=== PATIENT | male | born 2000 | race Caucasian/White ===

== ENCOUNTER 2022-06-05 16:43 | Outpatient (CLI) | payer OTHER, SELFPAY ==
[2022-06-05 17:58] LABS: Albumin* 4.7 g/dL (3.3-5.0); Chloride* 103 mmol/L (96-114); Potassium* 4.4 mmol/L (3.6-5.1); Sodium* 138 mmol/L (135-149)
[2022-06-05 18:01] LABS: Alanine Aminotransferase* 40 U/L (4-50); Alkaline Phosphatase* 75 U/L (40-150); Aspartate Amino Transferase* 41 U/L (12-35); Bilirubin Total* 0.9 mg/dL (0.1-1.5); Blood Urea Nitrogen* 16 mg/dL (5-24); Calcium* 9.2 mg/dL (8.4-10.6); Carbon Dioxide* 25 mmol/L (20-32); Creatinine* 0.7 mg/dL (0.5-1.5); Estimated Glomerular Filt Rate 135 ml/min; Glucose* 104 mg/dL (60-115); Lipase* 37 U/L (23-300); Total Protein* 8.2 g/dL (6.0-8.3)
== END 2022-06-05 16:44 | disposition home or self-care (01) ==
PROVIDERS: Visit Provider Student in an Organized Health Care Education/Training Program
DX: R10.9 Unspecified abdominal pain (principal)
CPT/HCPCS: 80053; 83690

== ENCOUNTER 2022-06-06 01:34 | Emergency (ER) | payer OTHER, SELFPAY ==
--- NOTE | 2022-06-06 01:39 | ED_ITS ---
HPI - General Adult General Time Seen by Provider: 01:39 Date Seen: 06/06/22 Chief complaint: Nausea/Vomiting Stated complaint: stomach hurts and vomitting. Time Seen by Provider: 06/06/22 01:40 Source: patient Mode of arrival: ambulatory Limitations: no limitations History of Present Illness HPI narrative: 21-year-old who presents today with 1 day of abdominal pain, nausea, vomiting. Review of chart shows the patient was seen for this at Urgent Care, labs were done with normal white blood cell count, normal hepatic panel, normal lipase. Was given Zofran at Urgent Care in felt better, however symptoms returned tonight and so came in the emergency department. Pain is in the middle the stomach, nonradiating. No diarrhea. No urinary symptoms. No fevers. No cough or runny nose. Related Data Home Medications Medication Instructions Recorded Confirmed estradiol 1 mg-progesterone 100 mg cap PO 06/05/22 06/05/22 capsule progesterone micronized 100 mg 100 mg PO QAM 06/05/22 06/05/22 capsule spironolactone 50 mg tablet 50 mg PO QAM 06/05/22 06/05/22 Allergies Allergy/AdvReac Type Severity Reaction Status Date / Time No Known Drug Allergies Allergy Verified 06/06/22 02:31 [facility] PFS Social History Smoking Status: Never smoker Do you use any of these nicotine containing products: None Second hand tobacco smoke exposure: No How often do you have a drink containing alcohol: never AUDIT-C Alcohol total score: 0 Non-prescribed substance use: denies use service: No Exam Narrative: Exam Narrative: General: Well-developed and well-nourished, no acute distress Head: Atraumatic and normocephalic Eyes: Pupils are equal reactive, extraocular motions intact, conjunctiva clear ENT: External nose and ears are normal, posterior pharynx without erythema or exudate Neck: No midline cervical tenderness, full spontaneous range of motion the neck, trachea midline, no adenopathy Heart: Regular rate and rhythm no murmurs or thrills Lungs: Clear to auscultation bilaterally without wheezes or crackles Abdomen: Hyperactive bowel sounds, suprapubic and right lower quadrant tenderness Musculoskeletal: No tenderness, deformity, or edema Neurologic: Awake, alert, and oriented x3, no gross focal neurologic deficits, cranial nerves intact as tested Psych: Mood and affect are appropriate Skin: No rashes Const: Vital Signs, click to edit/add: Vital Signs - 24 hr 06/06/22 01:48 06/06/22 02:49 Temperature 98.1 F Pulse Rate [Pulse Oximeter] 106 H 91 Respiratory Rate 16 16 Blood Pressure [Le ft Upper Arm] 138/85 121/72 Pulse Oximetry 99 98 Oxygen Delivery Me thod Room Air Room Air Course Course Hospital Course: Patient seen examined, external records reviewed. Patient presents with nausea, vomiting, and abdominal pain. Initially says the pain is in the middle of the abdomen but on exam tenderness is suprapubic and right lower quadrant. Patient had normal white blood cell count with normal back panel and normal lipase at Urgent Care earlier although did have a left shift. Given mid abdominal pain now localized into the right lower quadrant, concern for appendicitis although enteritis is more likely clinically. Labs and CT scan are ordered. Reevaluation(s) Reevaluation #1: Labs are reassuring, CT scan is negative. Patient is stable for discharge. Time: 03:13 Vital Signs Vital signs: Initial Vital Signs Temperature 98.1 F 06/06/22 01:48 Temperature Source Temporal Artery Scan 06/06/22 01:48 Pulse Rate 106 H 06/06/22 01:48 Respiratory Rate 16 06/06/22 01:48 Blood Pressure 138/85 06/06/22 01:48 Blood Pressure Mean 102 06/06/22 01:48 Pulse Oximetry 99 06/06/22 01:48 Oxygen Delivery Method 06/06/22 01:48 Vital Signs Temperature 98.1 F 06/06/22 01:48 Pulse Rate 106 H 06/06/22 01:48 Respiratory Rate 16 06/06/22 01:48 Blood Pressure 138/85 06/06/22 01:48 Pulse Oximetry 99 06/06/22 01:48 Oxygen Delivery Method 06/06/22 01:48 Temperature 98.1 F 06/06/22 01:48 Pulse Rate 91 06/06/22 02:49 Respiratory Rate 16 06/06/22 02:49 Blood Pressure 121/72 06/06/22 02:49 Pulse Oximetry 98 06/06/22 02:49 Oxygen Delivery Method 06/06/22 02:49 Medical Decision Making Lab Data Labs: Lab Results 06/06/22 Range/Units 02:04 WBC 8.49 (4.50-11.00) K/uL RBC 4.75 (4.30-5.90) m/uL Hgb 14.1 (13.5-17.5) gm/dL Hct 43.2 (37.0-53.0) % MCV 91 (80-100) fL MCH 30 (26-34) pg MCHC 33 (32-36) gm/dL RDW Coeff of Bong 12.7 (11.5-15.5) % Plt Count 204 (140-440) K/uL Neut % (Auto) 82.4 H (42.0-72.0) % Lymph % (Auto) 6.6 L (20-44) % Sac % (Auto) 10.0 (0.0-11.0) % Eos % (Auto) 0.7 (0.0-7.0) % Baso % (Auto) 0.1 (0.0-3.0) % Neut # (Auto) 7.00 (1.7-7.0) K/uL Lymph # (Auto) 0.60 L (0.90-2.90) K/uL Sac # (Auto) 0.80 (0.00-0.90) K/UL Eos # (Auto) 0.06 (0.00-0.50) K/uL Baso # (Auto) 0.01 (0.00-0.30) K/uL Discharge Plan Discharge Clinical Impression: Nausea and vomiting Patient Disposition: Home, Self-Care Condition: Stable Instructions: Acute Nausea and Vomiting (ED) Additional Instructions: Liquid diet for 24 hours. Take Zofran as needed for nausea vomiting. Activity Level: No Restrictions Discharge Diet: Full Liquid Prescriptions: No Action spironolactone 50 mg tablet 50 mg PO QAM estradiol-progesterone 1-100 mg capsule PO progesterone micronized 100 mg capsule 100 mg PO QAM Rx Instructions: off 7 days; repeat cycle Follow Up/Referrals: Provider,Not a Local [Primary Care Provider] - Stand Alone Forms: [employer] Info Instructions
[2022-06-06 01:48] VITALS: BP 138/85; PULSE 106; RESP 16; TEMP 36.7; O2SAT 99; BMI 28.5
--- NOTE | 2022-06-06 01:59 | CRLHL7_ITS ---
For Patients: As a result of the Century Cures Act, medical imaging exams and procedure reports are released immediately into your electronic medical record. You may view this report before your referring provider. If you have questions, please contact your health care provider. INDICATION: Right lower quadrant tenderness, vomiting. TECHNIQUE: CT abdomen and pelvis acquired with 99 cc Isovue 370 IV contrast. COMPARISON: None. FINDINGS: Lower chest: Unremarkable. Liver: Normal in size and attenuation. Right hepatic cyst. Subcentimeter hypodense foci are too small to accurately characterize but likely also cysts or hemangiomas. Gallbladder and bile ducts: Unremarkable. No stones or inflammation. No biliary ductal dilatation. Spleen: Unremarkable. Normal in size. No masses. Adrenal glands: Unremarkable. No nodules. Pancreas: Unremarkable. No mass or inflammation. Kidneys: Unremarkable. No suspicious masses, stones, or hydronephrosis. GI tract: Unremarkable. Normal in caliber. No sign of mass or inflammation. Normal appendix. Lymph nodes: No lymphadenopathy. Vasculature: Unremarkable. Omentum/Peritoneum/Abdominal Wall: Unremarkable. No sign of mass or infiltration. No free air or significant free fluid. Pelvis: Unremarkable. Bones: Unremarkable for age. IMPRESSION: No acute abdominal or pelvic abnormalities. Please note that all CT scans at this facility use dose modulation, iterative reconstruction, and/or weight-based dosing when appropriate to reduce radiation dose to as low as reasonably achievable. Dictated by Stuart Palacio MD @ 06/06/2022 3:12:44 AM (Electronically Signed)
[2022-06-06] MEDS: ONDANSETRON 2 MG/ML inj 4 MG IVP (02:01)
[2022-06-06 02:10] LABS: Basophils Absolute Auto 0.01 K/uL (0.00-0.30); Basophils Percent Auto 0.1 % (0.0-3.0); Eosinophils Absolute Auto 0.06 K/uL (0.00-0.50); Eosinophils Percent Auto 0.7 % (0.0-7.0); Hematocrit 43.2 % (37.0-53.0); Hemoglobin* 14.1 gm/dL (13.5-17.5); Immature Granulocytes Abs Auto 0.02 K/uL (0.00-0.30); Immature Granulocytes Pct Auto 0.2 %; Lymphocytes Percent Auto 6.6 % (20-44); Mean Corpuscular HGB Conc 33 gm/dL (32-36); Mean Corpuscular Hemoglobin 30 pg (26-34); Mean Corpuscular Volume 91 fL (80-100); Neutrophils Percent Auto 82.4 % (42.0-72.0); Platelet Count* 204 K/uL (140-440); RDW Coefficient of Variation % 12.7 % (11.5-15.5); Red Blood Count 4.75 m/uL (4.30-5.90); Slide Review Reflex No; White Blood Count* 8.49 K/uL (4.50-11.00)
--- OUTSIDE RECORDS SUMMARY | 2022-06-06 02:17 | XMS_ITS ---
:2001 Author Organization [facility] Address [address] [place] [address] Care Team Providers Name Role Phone JESSICA MENDOZA Unavailable Unavailable PROBLEMS Type Condition ICD9-CM Code [id number] Code Onset Condition SNO MED Code Dates Status Problem Active Problem Moving to new Z59.8 Active 886872 [facility] residence ALLERGIES No Known Allergies ENCOUNTERS Encounter Location Date Diagnosis [facility] [address] [place] [address] [address] Dec, [place] al visit for general Adult Med [place] adult medical ex amination [address] without abnormal findings Z00.00 ; Encount er for immunization Z23 ; Moving to new residence Z59.8 and Dietary calc ium deficiency E58 [facility] [address] [place] [address] [address] Nov, [place] immunization Z23 [address] [facility] [address] [facility] Sep, Enco unter for routine [place] [address] [place], [place] child health examination [phone] without abnormal findings Z00.129 [facility] [address] [place] [address] [address] October, [place] [address] [facility] [address] [place] [address] [address] October, [place] [address] [facility] [address] [place] [address] [address] Mar, [place] [address] [facility] [address] [place] [address] [address] Mar, Enco unter for routine Adult Med [place] child health exa mination [address] without abnormal findings Z00.129 [facility] [address] [facility] [address] 24 Nov, 2014 [facility] Adult [facility] [place] examination at [facility] [address] care facility V7 0.0 [facility] [address] [facility] [address] 16 Nov, 2014 Adult Med [place] [address] [facility] [address] [facility] [address] 08 Mar, 2013 Adult Med [place] [address] [facility] [address] [place] [address] [address] Jun, Need for prophylactic Adult Med [place] vaccination [place] [address] inoculation, Inf luenza V04.81 [facility] [address] [facility] [address] Mar, Rout ivan infant or child Adult Med [place] health check V20 .2 ; [place] [address] for prophylactic vaccination and inoculation, Inf luenza V04.81 and Diphtheria-tetan us-pertus sis, combined [D TP] [DtaP] V06.1 [facility] [address] [place] [address] [address] 17 Jan, 2011 Acut e pharyngitis 462 Adult Med [place] [address] [facility] [address] [place] [address] [address] 16 Jan, 2011 Acut e pharyngitis 462 and Adult [place] [address] infection, in co nditions classified elsew here and of unspecified s ite 079.99 [facility] [address] [facility] [address] 15 Dec, 2010 Nazia love infant or child Adult [place] health check V20 .2 [address] [facility] [address] [place] [address] [address] Jan, Rout ivan infant or child Adult [place] health check V20 .2 [address] [facility] [address] [place] [address] [address] May, Direct Mail Manager amador adenoiditis Adult Med [place] 474.01 [address] [facility] [address] [place] [address] [address] 14 May, 2009 Need for prophylactic Adult Med [place] vaccination [place] [address] inoculation, Inf luenza V04.81 [facility] [address] [place] [address] [address] Apr, Need for prophylactic Adult Med [place] vaccination and [address] inoculation, Inf luenza V04.81 ; Need fo r prophylactic vac cination and inoculation against viral hepatitis V05.3 ; Chronic adenoidi tis 474.01 and Routi ne infant or child health check V20.2 [facility] [address] [place] [address] 08 Sep, 2008 Coug h 786.2 [place] [address] [facility] [address] [place] [address] October, Deb l warts, unspecified [facility] [place] 078.10 [address] [facility] [address] [place] [address] Jan, Puwochbryw-kocsasy-lujwzh Adult Med [place], [place] sis, combined [D TP] [address] [DtaP] V06.1 ; N eed for prophylactic vac cination and inoculation against viral hepatitis V05.3 ; Need for prophyl actic vaccination and inoculation agai nst poliomyelitis V0 4.0 ; Routine infant o r child health check V20 .2 ; Need for prophylactic vaccination and inoculation agai nst varicella V05.4 and Need for prophylactic vaccination with iyrnyjd-cuzrp-hs sherita (MMR) vaccine V0 6.4 [facility] [address] [place] [address] 200 07 May, 2006 Direct Mail Manager amador rhinitis 472.0 [place] [address] [facility] [address] [place] [address] 200 14 Nov, 2005 Rout ine infant or child Adult Med [place], [place] health check V20 .2 [address] [facility] [address] [place] [address] 200 October, Acut e sinusitis, Adult Med [place], [place] unspecified 461. 9 [address] [facility] [address] [place] [address] 200 Jul, Acut e sinusitis, Adult Med [place], [place] unspecified 461. 9 [address] [facility] [address] [place] [address] October, Rout ine or child Adult Med [place], [place] health check V20 .2 [address] [facility] [address] [place] [address] 200 Sep, Acut e sinusitis, Adult Med [place], [place] unspecified 461. 9 [address] [facility] [address] [place] [address] Apr, [place] [address] [facility] [address] 26 Feb, 2003 [place] [address] [facility] [address] 17 Feb, 2003 [place] [address] [facility] [address] 04 Nov, 2002 Adult Med [place] [address] [facility] [address] 21 Apr, 2002 [place] [address] [facility] [address] 23 Feb, 2002 Adult [place] [address] [facility] [address] 2001 Adult [place] [address] [facility] [address] Nov, Adult [place] [address] IMMUNIZATIONS Vaccine Route Administration Date Status DTaP (INFANRIX) Unknown Feb 18, 2003 Administered DTaP (INFANRIX) Unknown Jan 21, 2007 Administered MMR Unknown November 05, 2002 Administered MMR Unknown Jan 21, 2007 Administered Pneumococcal conjugate PCV 13 Unknown Apr 27, 2003 Ad ministered DTaP (INFANRIX) Unknown 2001 Administered DTaP (INFANRIX) Unknown Feb 24, 2002 Administered DTaP (INFANRIX) Unknown Apr 24, 2002 Administered Varicella (Varivax) Unknown November 05, 2002 Administered zzInfluenza, unspecified Unknown Apr 27, 2003 Adminis tered formulation (CPT 20153 Inactive) Hep B, unspecified formulation (CPT Unknown Feb 27 3 Administered 78734 Inactive) zzInfluenza, FLUZONE 36MOS+ Unknown Apr 06, 2009 Admi nistered Hep A, ped/adol, 2 dose (Havrix) Unknown Apr 06, 2009 Administered Hep A, ped/adol, 2 dose (Havrix) Unknown Jan 21, 2007 Administered IPV (IPOL) Unknown Jan 21, 2007 Administered IPV (IPOL) Unknown Apr 27, 2003 Administered IPV (IPOL) Unknown Feb 24, 2002 Administered IPV (IPOL) Unknown 2001 Administered Varicella (Varivax) Unknown Jan 21, 2007 Administered zzInfluenza, unspecified IM Intramuscular Mar 14, 2016 Admini stered formulation (CPT 54635 Inactive) Hib-Hep B Unknown 2001 Administered Meningococcal MCV4O (Menveo) (CVX IM Intramuscular November 30, 2017 Administered 136) Hib-Hep B Unknown Feb 24, 2002 Administered Meningococcal B, (Bexsero) OMV IM Intramuscular December 22, 2019 Administered Hib-Hep B Unknown Feb 18, 2003 Administered Novel [id number] Unknown May 17, 2009 Administ nicol Wang, live, intranasal Unknown Mar 11, 2013 Ad ministered zzInfluenza, FLUZONE 36MOS+ Unknown Mar 05, 2012 Admi nistered HPV (human papillomavirus), Unknown November 17, 2014 Admi nistered quadrivalent, 3 dose schedule zzInfluenza, FLUZONE 36MOS+ Unknown Jun 14, 2012 Admi nistered Meningococcal MCV4O (Menveo) (CVX IM Intramuscular Mar 14, 2016 Administered 136) Tdap (Boostrix) Unknown Mar 05, 2012 Administered HPV (human papillomavirus), IM Intramuscular Mar 14, 2016 Adm inistered quadrivalent, 3 dose schedule Pneumococcal conjugate PCV 13 Unknown 2001 Ad ministered Pneumococcal conjugate PCV 13 Unknown Apr 24, 2002 Ad ministered Pneumococcal conjugate PCV 13 Unknown Feb 27, 2003 Ad ministered SOCIAL HISTORY Qualifiers Date Never Smoker REASON FOR REFERRAL FUNCTIONAL STATUS PLAN OF CARE Activity Details Follow Up 1 Year Reason:[facility] VITAL SIGNS Temperature 98.6 degrees Fahrenheit 2019-12-22 Temperature 98.8 degrees Fahrenheit 2017-09-06 Temperature 97.3 degrees Fahrenheit 2016-03-14 Temperature 97.9 degrees Fahrenheit 2014-11-17 Temperature 97 degrees Fahrenheit 2013-03-11 Temperature 98.9 degrees Fahrenheit 2012-03-05 Temperature 98.5 degrees Fahrenheit 2011-01-18 Temperature 99.6 degrees Fahrenheit 2011-01-17 Temperature 98.9 degrees Fahrenheit 2010-12-16 Temperature 98.5 degrees Fahrenheit 2010-01-21 Temperature 97.7 degrees Fahrenheit 2009-05-31 Temperature 98.9 degrees Fahrenheit 2009-04-06 Temperature 97 degrees Fahrenheit 2008-09-09 Temperature 98.1 degrees Fahrenheit 2007-10-07 Temperature 96.5 degrees Fahrenheit 2007-01-21 Temperature 96.8 degrees Fahrenheit 2006-05-10 Temperature 98.3 degrees Fahrenheit 2005-11-15 Temperature 97.8 degrees Fahrenheit 2005-10-23 Temperature 97.9 degrees Fahrenheit 2005-07-25 Temperature 97 degrees Fahrenheit 2004-09-26 Height 73 in 2019-12-22 Height 72 in 2017-09-06 Height 68.5 in 2016-03-14 Height 63 in 2014-11-17 Height 58.75 in 2013-03-11 Height 57 in 2012-03-05 Height 54.75 in 2011-01-18 Height 54.5 in 2011-01-17 Height 54 in 2010-12-16 Height 52 in 2010-01-21 Height 50.75 in 2009-05-31 Height 49.75 in 2009-04-06 Height 48.25 in 2008-09-09 Height 46.25 in 2007-10-07 Height 44 in 2007-01-21 Height 42 in 2006-05-10 Height 41 in 2005-11-15 Height 40.25 in 2005-10-23 Height 39.75 in 2005-07-25 Height 37.5 in 2004-11-01 Height 38 in 2004-09-26 Weight 159.0 lbs 2019-12-22 Weight 176 lbs 2017-09-06 Weight 135.8 lbs 2016-03-14 Weight 118 lbs 2014-11-17 Weight 91.4 lbs 2013-03-11 Weight 80 lbs 2012-03-05 Weight 60.5 lbs 2011-01-18 Weight 61 lbs 2011-01-17 Weight 64 lbs 2010-12-16 Weight 58 lbs 2010-01-21 Weight 55 lbs 2009-05-31 Weight 54 lbs 2009-04-06 Weight 50 lbs 2008-09-09 Weight 46.25 lbs 2007-10-07 Weight 41 lbs 2007-01-21 Weight 39.5 lbs 2006-05-10 Weight 37 lbs 2005-11-15 Weight 36.5 lbs 2005-10-23 Weight 37.5 lbs 2005-07-25 Weight 33 lbs 2004-11-01 Weight 32 lbs 2004-09-26 BMI 20.98 kg/m2 2019-12-22 BMI 23.87 kg/m2 2017-09-06 BMI 20.35 kg/m2 2016-03-14 BMI 20.9 kg/m2 2014-11-17 BMI 18.62 kg/m2 2013-03-11 BMI 17.3 kg/m2 2012-03-05 BMI 14.4 kg/m2 2011-01-18 BMI 14.4 kg/m2 2011-01-17 BMI 15.3 kg/m2 2010-12-16 BMI 15.1 kg/m2 2010-01-21 BMI 14.7 kg/m2 2009-05-31 BMI 15 kg/m2 2009-04-06 BMI 15.5 kg/m2 2008-09-09 BMI 15.3 kg/m2 2007-10-07 BMI 15.2 kg/m2 2007-01-21 BMI 15.9 kg/m2 2006-05-10 BMI 15.4 kg/m2 2005-11-15 BMI 15.6 kg/m2 2005-10-23 BMI 16.8 kg/m2 2005-07-25 BMI 16.8 kg/m2 2004-11-01 BMI 15.5 kg/m2 2004-09-26 Blood pressure systolic 118 mm Hg 2019-12-22 Blood pressure diastolic 70 mm Hg 2019-12-22 MEDICATIONS No Known Medications PROCEDURES Procedure Date Ordered Result Body Site FLU VACCINE (FLUZONE) 36 MOS+ Apr 06, 2009 HEMOGLOBIN November 17, 2014 AUDIOMETRY-SCREEN Jan 21, 2007 URINE-NO MICRO Jan 21, 2007 CAPILLARY BLOOD DRAW November 17, 2014 IMMUNE ADMIN H1N1 IM/NASAL May 17, 2009 DESTRUCT LESION, 1-14 October 07, 2007 FLU VACC PANDEMIC May 17, 2009 VARICELLA IMMUNIZATION Jan 21, 2007 H PAPILLOMA VACC 3 DOSE IM November 17, 2014 HEMOGLOBIN Jan 21, 2007 CULTURE, BACTERIA, OTHER Jan 17, 2011 CULTURE, BACTERIA, OTHER Jan 18, 2011 CAPILLARY BLOOD DRAW Jan 21, 2007 CAPILLARY BLOOD DRAW Jan 17, 2011 IMMUNIZATION ADMIN, EACH ADD Apr 06, 2009 POLIOVIRUS, IPV, SC Jan 21, 2007 HEP A VACC, PED/ADOL, 2 DOSE Jan 21, 2007 HEP A VACC, PED/ADOL, 2 DOSE Apr 06, 2009 IMMUNIZATION ADMIN, EACH ADD Jan 21, 2007 FLU VACCINE (FLUZONE) 36 MOS+ Jun 14, 2012 MENINGOCOCCAL VACCINE, IM Mar 14, 2016 MENINGOCOCCAL VACCINE, IM Mar 14, 2016 TDAP VACCINE >7 IM Mar 05, 2012 FLU VACCINE (FLUZONE) 36 MOS+ Mar 05, 2012 BRIEF EMOTIONAL/BEHAV ASSMT December 22, 2019 VISUAL ACUITY SCREEN December 22, 2019 AUDIOMETRY-SCREEN December 22, 2019 IMMUNIZATION ADMIN November 30, 2017 IMMUNIZATION ADMIN Mar 05, 2012 LIPID PANEL December 22, 2019 IMMUNIZATION ADMIN Jun 14, 2012 CAPILLARY BLOOD DRAW December 22, 2019 IMMUNIZATION ADMIN November 17, 2014 HIV-1/HIV-2, SINGLE ASSAY December 22, 2019 IMMUNIZATION ADMIN Mar 14, 2016 BRIEF EMOTIONAL/BEHAV ASSMT December 22, 2019 IMMUNIZATION ADMIN, EACH ADD Mar 14, 2016 IMMUNIZATION ADMIN, EACH ADD Mar 14, 2016 IMMUNIZATION ADMIN Jan 21, 2007 IMMUNIZATION ADMIN December 22, 2019 IMMUNIZATION ADMIN Apr 06, 2009 MENB RP W/OMV VACCINE IM December 22, 2019 IMMUNIZATION ADMIN, EACH ADD Mar 05, 2012 IMMUNIZATION ADMIN, EACH ADD Mar 14, 2016 FLU VAC (FLUARIX) 6MOS+ Mar 14, 2016 FLU VACCINE 4 VALENT NASAL Mar 11, 2013 Mening (Menactra) (CVX 114) DO NOT USE November 30, 2017 ASSAY, BLD/SERUM CHOLESTEROL Jan 21, 2007 BRIEF EMOTIONAL/BEHAV ASSMT Mar 14, 2016 LIPID PANEL November 17, 2014 9VHPV VACCINE 3 DOSE IM Mar 14, 2016 IMMUNE ADMIN ORAL/NASAL Mar 11, 2013 9VHPV VACCINE 3 DOSE IM Mar 14, 2016 FLU VAC (FLUARIX) 6MOS+ Mar 14, 2016 MMR Jan 21, 2007 DTaP (INFANRIX) Jan 21, 2007 BRIEF EMOTIONAL/BEHAV ASSMT September 06, 2017 IMMUNOASSAY,INFECTIOUS AGENT Jan 18, 2011 VISUAL ACUITY SCREEN Jan 21, 2007 AUTOMATED LEUKOCYTE COUNT Jan 17, 2011 BRIEF EMOTIONAL/BEHAV ASSMT November 17, 2014 IMMUNIZATION ADMIN Mar 14, 2016 STREP A ASSAY W/OPTIC Jan 17, 2011 STREP A ASSAY W/OPTIC Jan 18, 2011 RESULTS Name Result Date Reference Range Lipid Panel/Profile (66892) 2019-12-22 Cholesterol, Total 144 100 - 170 mg/ dL HDL Cholesterol 54 40 - 60 mg/dL Triglycerides 89 40 - 150 mg/dL LDL Cholesterol 73 40 - 110 mg/dL non-HDL 91 LDL/HDL 1.4 Glucose 92 60 - 100 mg/dL HIV (38936) 2019-12-22 result Negative HEMOGLOBIN 2014-11-17 GPA% 59.3 % 37.0/92.0 GRA 4.4 uL 2.0/7.8 HCT 42.0 % 37.0/51.0 HGB 14.0 g/dL 12.0/18.0 LYM 2.3 uL 0.6/4.1 LYM% 30.8 % 10.0/58.5 MCH 29.9 pg 26.0/32.0 MCHC 33.3 g/dL 31.0/36.0 MCV 89.7 fL 80.0/97.0 MID 0.7 uL 0.0/1.8 MID% 9.9 % 0.1/24.0 MPV 8.4 fL 0.0/40.0 PLT 248 uL 140/440 RBC 4.68 uL 4.20/6.30 RDW 11.6 % 11.5/14.5 WBC 7.4 K/uL 4.1/10.9 HEMOGLOBIN Lipid Profile (Non Fasting) 2014-11-17 Glucose 85 mg/dL 60-90 GPA% GRA HCT HDL 63 mg/dL >45 HGB LDL 87 mg/dL <110 LDL/HDL 1.4 mg/dL LYM LYM% MCH MCHC MCV MID MID% MPV Non HDL 116 mg/dL PLT RBC RDW TC/HDL mg/dL Total Cholesterol 179 mg/dL <170 Triglycerides 143 mg/dL Children <130 Ad olsecen WBC REASON FOR VISIT 19 yr exam, Lab Staff, 16yr exam , EMR-Andrea, EMR-Andrea, EMR-Andrea, EMR-Andrea, EMR- Andrea, EMR-Andrea, EMR-Andrea, EMR-Andrea, EMR-Andrea, EMR-Andrea, EMR-Andrea, EMR-Andrea, EMR-Andrea, EMR-Andrea, EMR-Andrea, EMR-Andrea, EMR-Andrea, EMR-Andrea, EMR-Andrea, EMR-Andrea, EMR-Andrea, EMR-Andrea, EMR-Andrea, EMR-Andrea, EMR-Andrea, EMR-Andrea, EMR-Andrea, EMR-Andrea, EMR-Andrea, EMR-Andrea Insurance Providers [facility] Member Patient Patient Patient Patient Patient Subscriber Subscriber Subscriber Group Insurance Plan Plan Plan Plan ID Relationship Address Phone Name Date of ID Name Date of No Type Insurance Insurance Insurance Coverage to Subscriber Address Phone Name Dates Preferred [phone] Preferred self Deepak 23 [id number] One [id number] [place] [address] [place] [address] tive Services Services Medica [address] Medica Deepak [id number] [phone] [address] Preferred [address] Preferred self Deepak [id number] One [id number] [place] [address]
--- OUTSIDE RECORDS SUMMARY | 2022-06-06 02:17 | XMS_ITS ---
:2001 Author Organization [facility] Address [address] [place] [address] Care Team Providers Name Role Phone JESSICA MENDOZA Unavailable Unavailable PROBLEMS Type Condition ICD9-CM Code UFA78-GC Code Onset Condition SNO MED Code Dates Status Problem Active Problem Moving to new Z59.8 Active 318982 [facility] residence ALLERGIES No Known Allergies ENCOUNTERS Encounter Location Date Diagnosis [facility] [address] [place] [address] [address] Dec, [facility] visit for general Adult Med [place], [place] adult medical ex amination [address] without abnormal findings Z00.00 ; Encount er for immunization Z23 ; Moving to new residence Z59.8 and Dietary calc ium deficiency E58 [facility] [address] [place] [address] [address] Nov, [place] for [place] immunization Z23 [address] [facility] [address] [facility] Sep, [facility] unter for routine [place] [address] [place], [place] child health examination [id number] without abnormal findings Z00.129 [facility] [address] [place] [address] [address] October, [place] [address] [facility] [address] [place] [address] [address] October[place] [address] [facility] [address] [place] [address] [address] Mar, [place] [address] [facility] [address] [place] [address] [address] Mar, [facility] unter for routine Adult Med [place] child health exa mination [address] without abnormal findings Z00.129 [facility] [address] [facility] [address] 24 Nov, 2014 [facility] [place] examination at [facility] [address] care facility V7 0.0 [facility] [address] [facility] [address] 16 Nov, 2014 Adult Med [place] [address] [facility] [address] [facility] [address] 08 Mar, 2013 Adult Med [place] [address] [facility] [address] [place] [address] [address] Jun, Need for prophylactic Adult Med [place] vaccination and [address] inoculation, Inf luenza V04.81 [facility] [address] [facility] [address] Mar, Rout ivan infant or child Adult Med [place] health check V20 .2 ; [place] [address] for prophylactic vaccination and inoculation, Inf luenza V04.81 and Diphtheria-tetan us-pertus sis, combined [D TP] [DtaP] V06.1 [facility] [address] [place] [address] [address] 17 Jan, 2011 Acut e pharyngitis 462 Adult Med [place] [address] [facility] [address] [place] [address] [address] 16 Jan, 2011 Acut e pharyngitis 462 and Adult [place] [address] infection, in co nditions classified elsew here and of unspecified s ite 079.99 [facility] [address] 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 adenoiditis Adult Med [place] 474.01 [address] [facility] [address] [place] [address] [address] 14 May, 2009 Need for prophylactic Adult Med [place] vaccination and [address] inoculation, Inf luenza V04.81 [facility] [address] [place] [address] [address] Apr, Need for prophylactic Adult Med [place] vaccination and [address] inoculation, Inf luenza V04.81 ; Need fo r prophylactic vac cination and inoculation against viral hepatitis V05.3 ; Chronic adenoidi tis 474.01 and Routi ne infant or child health check V20.2 [facility] [address] [place] [address] 08 Sep, 2008 Coug h 786.2 [place] [address] [facility] [address] [place] [address] October, Miladys l warts, unspecified [facility] [place] 078.10 [address] [facility] [address] [place] [address] Jan, Lsifmyjram-emujdwn-rmxddj Adult [place] sis, combined [D TP] [address] [DtaP] V06.1 ; N eed for prophylactic vac cination and inoculation against viral hepatitis V05.3 ; Need for prophyl actic vaccination and inoculation agai nst poliomyelitis V0 4.0 ; Routine infant o r child health check V20 .2 ; Need for prophylactic vaccination and inoculation agai nst varicella V05.4 and Need for prophylactic vaccination with dmjkemc-aqxvw-qr sherita (MMR) vaccine V0 6.4 [facility] [address] [place] [address] 07 May, 2006 Head Grower amador rhinitis 472.0 [place] [address] [facility] [address] [place] [address] 14 Nov, 2005 Rout ine infant or child Adult Med [place], [place] health check V20 .2 [address] [facility] [address] [place] [address] October, Acut e sinusitis, Adult Med [place], [place] unspecified 461. 9 [address] [facility] [address] [place] [address] 200 Jul, Acut e sinusitis, Adult Med [place], [place] unspecified 461. 9 [address] [facility] [address] [place] [address] October, Rout ine or child Adult Med [place], [place] health check V20 .2 [address] [facility] [address] [place] [address] 200 Sep, Acut e sinusitis, Adult Med [place], [place] unspecified 461. 9 [address] [facility] [address] [place] [address] Apr, [place] [address] [facility] [address] 26 Feb, 2003 [place] Med [place] [address] [facility] [address] 17 Feb, 2003 [place] [address] [facility] [address] 04 Nov, 2002 [place] [address] [facility] [address] 21 Apr, 2002 [place] [address] [facility] [address] 23 Feb, 2002 [place] [address] [facility] [address] 2001 [place] [address] [facility] [address] Nov, [place] [address] IMMUNIZATIONS Vaccine Route Administration Date Status DTaP [...] Apr 27, 2003 Adminis tered formulation (CPT 57513 Inactive) Hep B, unspecified formulation (CPT Unknown Feb 27 3 Administered 47400 Inactive) zzInfluenza, FLUZONE 36MOS+ Unknown Apr 06, [...] Mar 14, 2016 Admini stered formulation (CPT 30480 Inactive) Hib-Hep B Unknown 2001 Administered Meningococcal MCV4O (Menveo) (CVX IM Intramuscular November 30, 2017 Administered 136) Hib-Hep B Unknown Feb 24, 2002 Administered Meningococcal B, (Bexsero) OMV IM Intramuscular December 22, 2019 Administered Hib-Hep B Unknown Feb 18, 2003 Administered Novel [id number] Unknown May 17, 2009 Administ nicol Wang, [...] CARE Activity Details Follow Up 1 Year Reason:[facility] VITAL SIGNS Temperature 98.6 degrees Fahrenheit 2019-12-22 [...] Name Result Date Reference Range Lipid Panel/Profile (78882) 2019-12-22 Cholesterol, Total 144 100 - 170 mg/ dL HDL Cholesterol 54 40 - 60 mg/dL Triglycerides 89 40 - 150 mg/dL LDL Cholesterol 73 40 - 110 mg/dL non-HDL 91 LDL/HDL 1.4 Glucose 92 60 - 100 mg/dL HIV (24290) 2019-12-22 result Negative HEMOGLOBIN 2014-11-17 GPA% 59.3 [...] EMR-Andrea, EMR-Andrea, EMR-Andrea, EMR-Andrea, EMR-Andrea Insurance Providers [facility] Member Patient Patient Patient Patient Patient Subscriber Subscriber Subscriber Group Insurance Plan Plan Plan Plan ID Relationship Address Phone Name Date of ID Name Date of No Type Insurance Insurance Insurance Coverage to Subscriber Address Phone Name Dates Preferred [phone] Preferred self Deepak [id number] [facility] [address] [place] [address] Preferred [phone] Preferred self Deepak [id number] [facility] [address] [place] [address] [facility] Medica [phone] Medica Deepak [id number] [phone] [place] [phone]
[2022-06-06 02:49] VITALS: BP 121/72; PULSE 91; RESP 16; O2SAT 98
== END 2022-06-06 03:26 | disposition home or self-care (01) ==
PROVIDERS: Emergency Provider Family Medicine
DX: R11.2 Nausea with vomiting, unspecified (principal)
CPT/HCPCS: 36415; 74177; 85025; 96374; 99283; 99284; J2405; Q9967